=== PATIENT | male | born 1960 | race Caucasian/White ===

== ENCOUNTER 2023-07-25 12:22 | Emergency (ER) | payer OTHER ==
[2023-07-25] MEDS ORDERED: Acetaminophen 500 MG TAB ONE (13:53)
[2023-07-25] MEDS ORDERED: Cyclobenzaprine 10 MG TAB ONE (15:15)
[2023-07-25] MEDS ORDERED: predniSONE 20 MG TAB ONE (16:15)
== END 2023-07-25 16:20 | disposition home or self-care (01) ==
LOC: ERS 12:22
DX: M70.21 Olecranon bursitis, right elbow (principal); G89.29 Other chronic pain; M54.2 Cervicalgia; M25.552 Pain in left hip; M62.838 Other muscle spasm; F17.210 Nicotine dependence, cigarettes, uncomplicated
CPT/HCPCS: 72040; J7512